=== PATIENT | female | born 1985 | race African-American/Black ===

== ENCOUNTER 2022-02-25 04:51 | Emergency (ER) | payer BC, OTHER ==
[2022-02-25 05:02] VITALS: BP 120/78; PULSE 60; RESP 18; TEMP 97.7; BMI 30.7
[2022-02-25] MEDS ORDERED: KETOROLAC TROMETHAMINE 10 MG TABLET PO ONE ×2 (05:52→05:59)
[2022-02-25] MEDS ORDERED: ACETAMINOPHEN 500 MG TABLET (FP) PO ONE (05:52)
[2022-02-25] MEDS ORDERED: LIDOCAINE 5% TOPICAL PATCH TP ONE (05:52)
[2022-02-25] MEDS ORDERED: ACETAMINOPHEN 500 MG TABLET (FP) ONE (05:57)
[2022-02-25] MEDS ORDERED: LIDOCAINE 5% TOPICAL PATCH ONE (05:57)
[2022-02-25] MEDS ORDERED: LIDOCAINE PATCH REMOVAL MC ONE (18:00)
== END 2022-02-25 06:25 | disposition home or self-care (01) ==
LOC: JER 04:51
DX: M25.561 Pain in right knee (principal); G89.29 Other chronic pain
CPT/HCPCS: 99283-25